=== PATIENT | male | born 1930 | race Caucasian/White ===

== ENCOUNTER 2016-06-10 15:06 | Inpatient (IN) | payer MEDICARE, BC ==
[~2016-06-10] VITALS: Ht 172.7 cm; Wt 53.9 kg
[~2016-06-10 15:06] MED LIST: AMLO2.5T29 PO; AUD NEB; BENA10TA3 PO
[2016-06-10] MEDS ORDERED: MOM30 PO (15:14)
[2016-06-10] MEDS ORDERED: CALC-1009 PO (15:14)
[2016-06-10] MEDS ORDERED: FAMO20 PO (15:14)
[2016-06-10] MEDS ORDERED: BISA5TAB12 PO (15:14)
[2016-06-10] MEDS ORDERED: ATOR40TA28 PO (15:14)
[2016-06-10] MEDS ORDERED: LOSA50TA37 PO (15:14)
[2016-06-10] MEDS ORDERED: ASPI81 PO (15:14)
[2016-06-10] MEDS ORDERED: VITAD1000 PO (15:14)
[2016-06-10] MEDS ORDERED: MULT1CAP32 PO (15:14)
[2016-06-10 15:22] LABS: GLUCOSE,POINT OF CARE 107 MG/DL (70-110)
[2016-06-10 15:33] LABS: BASOPHILS % (AUTO) 0.3 % (0.0-2.0); EOSINOPHILS % (AUTO) 0.6 % (1.0-6.0); HEMATOCRIT 39.4 % (41-53); HEMOGLOBIN 12.2 g/dL (13.5-17.5); LYMPHOCYTES # (AUTO) 1.7 K/uL (1.0-4.8); LYMPHOCYTES % (AUTO) 14.9 % (22.0-44.0); MEAN CORPUSCULAR HEMOGLOBIN 23.6 pg (26.0-34.0); MEAN CORPUSCULAR HGB CONC 31.1 G/dL (31.0-37.0); MEAN CORPUSCULAR VOLUME 76 fL (80-100); MONOCYTES # (AUTO) 0.6 K/uL (0.1-1.0); MONOCYTES % (AUTO) 5.5 % (2.0-9.0); NEUTROPHILS # (AUTO) 9.2 K/uL (1.8-7.7); NEUTROPHILS % (AUTO) 78.7 % (40.0-70.0); PLATELET COUNT (AUTO) 230 K/uL (150-450); RED BLOOD CELL COUNT(AUTO) 5.19 MIL/uL (4.50-5.90); RED CELL DISTRIBUTION WIDTH 16.6 % (11.5-14.5); WHITE BLOOD COUNT (AUTO) 11.7 K/uL (4.5-11.0)
[2016-06-10 15:47] LABS: ANION GAP 8 mmol/L (8-16); CALCIUM, TOTAL 9.1 mg/dL (8.8-10.5); CARBON DIOXIDE 32 mmol/L (22-29); CHLORIDE 102 mmol/L (98-107); CREATININE 1.26 mg/dL (0.60-1.30); GLOMERULAR FILTR. RATE CALC 54 mL/min (>60); SODIUM SERUM 142 mmol/L (136-145); UREA NITROGEN, BLOOD 15 mg/dL (7-18)
[2016-06-10 15:50] LABS: INR 1.1 (0.9-1.1); PROTHROMBIN TIME 11.7 SEC (9.4-11.6)
[2016-06-10 15:58] LABS: RBC MORPHOLOGY COMMENT ABNORMAL RBC MORPH
[2016-06-10] MEDS ORDERED: LORazepam 2 MG/ML VIAL IVP ONE (16:00)
[2016-06-10] MEDS ORDERED: LORazepam 2 MG/ML VIAL ONE (16:01)
[2016-06-10 16:07] LABS: B-TYPE NATRIURETIC PEPTIDE 526 pg/mL (0-100)
[2016-06-10 16:15] LABS: ALANINE AMINOTRANSFERASE 19 U/L (12-78); ALBUMIN 2.9 g/dL (3.4-5.0); ASPARTATE AMINOTRANSFERASE 35 U/L (15-37); BILIRUBIN,TOTAL 0.7 mg/dL (0.1-1.0); CREATINE KINASE MB 3.1 ng/mL (0-5); CREATINE KINASE, TOTAL 181 U/L (39-308); TOTAL PROTEIN, SERUM 7.5 g/dL (6.4-8.2)
[2016-06-10] MEDS ORDERED: CLOPIDOGREL BISULFATE 75 MG TABLET PO ONE (17:15)
[2016-06-10] MEDS ORDERED: ASPIRIN 81 MG CHEWABLE TABLET PO ONE (17:15)
[2016-06-10 17:26] LABS: APPEARANCE,URINE CLEAR (CLEAR); GLUCOSE, URINE (UA) NEGATIVE (NEGATIVE); KETONES,URINE NEGATIVE (NEGATIVE); LEUKOCYTE ESTERASE ,URINE NEGATIVE (NEGATIVE); OCCULT BLOOD,URINE NEGATIVE (NEGATIVE); PROTEIN,URINE NEGATIVE (NEGATIVE)
[2016-06-10] MEDS ORDERED: ACETAMINOPHEN 325 MG TABLET PO PRN (17:30)
[2016-06-10 17:36] LABS: ADD UA MICROSCOPIC NO
[2016-06-10] MEDS ORDERED: IPRATROPIUM BROMIDE 0.5 MG/2.5 ML NEB SOLUTION NEB PRN (21:00)
[2016-06-10] MEDS ORDERED: ZOLPIDEM TARTRATE 5 MG TABLET PO PRN (21:00)
[2016-06-10] MEDS ORDERED: ONDANSETRON HCL 4 MG/2 ML VIAL IVP PRN (21:00)
[2016-06-10] MEDS ORDERED: MAGNESIUM HYDROXIDE SUSPENSION 30 ML UDCUP PO PRN (21:00)
[2016-06-10] MEDS ORDERED: ALBUTEROL SULFATE 2.5 MG/0.5 ML NEB SOLUTION NEB PRN (21:00)
[2016-06-10] MEDS: HEPARIN SODIUM,PORCINE 5,000 UNITS/ML VIAL SQ SCH (21:23)
[2016-06-10 22:43] VITALS: BP 121/91
[2016-06-11 04:21] VITALS: BP 143/67
[2016-06-11 07:13] LABS: BASOPHILS # (AUTO) 0.03 K/uL (0.00-0.20); BASOPHILS % (AUTO) 0.3 % (0.0-2.0); EOSINOPHILS % (AUTO) 2.19 % (1.0-6.0); HEMATOCRIT 39.4 % (41-53); HEMOGLOBIN 12.7 g/dL (13.5-17.5); LYMPHOCYTES # (AUTO) 1.2 K/uL (1.0-4.8); LYMPHOCYTES % (AUTO) 12.5 % (22.0-44.0); MEAN CORPUSCULAR HEMOGLOBIN 23.9 pg (26.0-34.0); MEAN CORPUSCULAR HGB CONC 32.2 G/dL (31.0-37.0); MEAN CORPUSCULAR VOLUME 74 fL (80-100); MONOCYTES # (AUTO) 0.5 K/uL (0.1-1.0); MONOCYTES % (AUTO) 5.3 % (2.0-9.0); NEUTROPHILS # (AUTO) 7.4 K/uL (1.8-7.7); NEUTROPHILS % (AUTO) 79.8 % (40.0-70.0); PLATELET COUNT (AUTO) 216 K/uL (150-450); RED CELL DISTRIBUTION WIDTH 17.2 % (11.5-14.5); WHITE BLOOD COUNT (AUTO) 9.2 K/uL (4.5-11.0)
[2016-06-11 07:19] LABS: RBC MORPHOLOGY COMMENT ABNORMAL RBC MORPH
[2016-06-11 07:53] VITALS: BP 136/83
[2016-06-11 08:25] LABS: ERYTHROCYTE SEDIMENTATION RATE 33 MM/HR (0-15)
[2016-06-11 08:29] LABS: HEMOGLOBIN A1C 6.2 % (4.5-6.2)
[2016-06-11 08:42] LABS: ANION GAP 10 mmol/L (8-16); CALCIUM, TOTAL 9.1 mg/dL (8.8-10.5); CARBON DIOXIDE 28 mmol/L (22-29); CHLORIDE 102 mmol/L (98-107); CHOL/HDL RATIO 2.3 (4.2-7.3); CREATINE KINASE, TOTAL 163 U/L (39-308); GLOMERULAR FILTR. RATE CALC > 60 mL/min (>60); POTASSIUM 3.7 mmol/L (3.5-5.1); SODIUM SERUM 140 mmol/L (136-145); UREA NITROGEN, BLOOD 12 mg/dL (7-18)
[2016-06-11] MEDS ORDERED: MAGNESIUM SULFATE 4 GM/WATER 100 ML IV PRN (09:15)
[2016-06-11] MEDS ORDERED: GADOBUTROL 1 MMOL/ML 10 ML VIAL IVP ONE (09:19)
[2016-06-11] MEDS: PANTOPRAZOLE SODIUM 40 MG DR TABLET PO SCH (09:29)
[2016-06-11] MEDS: ASPIRIN 81 MG CHEWABLE TABLET PO SCH (09:29)
[2016-06-11] MEDS: BENAZEPRIL HCL 10 MG TABLET PO SCH (09:29)
[2016-06-11] MEDS: MULTIVITAMINS, THERAPEUTIC TABLET PO SCH (09:30)
[2016-06-11] MEDS: CHOLECALCIFEROL (VIT D3) 1,000 UNITS TABLET PO SCH (09:30)
[2016-06-11] MEDS: HEPARIN SODIUM,PORCINE 5,000 UNITS/ML VIAL SQ SCH ×2 (10:18→20:16)
[2016-06-11 11:00] VITALS: BP 126/66
[2016-06-11] MEDS: MAGNESIUM SULFATE 2 GM in DEXTROSE 5%-WATER 50 ML IV PRN (12:11)
[2016-06-11 15:03] VITALS: BP 148/95
[2016-06-11] MEDS ORDERED: LORazepam 2 MG/ML VIAL IVP ONE (15:30)
[2016-06-11] MEDS ORDERED: LORazepam 2 MG/ML VIAL IVP PRN (15:30)
[2016-06-11] MEDS ORDERED: AMLO2.5T PO (15:33)
[2016-06-11 19:45] VITALS: BP 142/84
[2016-06-11] MEDS: ATORVASTATIN CALCIUM 40 MG TABLET PO SCH (20:16)
[2016-06-11 23:33] VITALS: BP 131/79
[2016-06-12 04:54] VITALS: BP 129/71
[2016-06-12 08:14] VITALS: BP 135/79
[2016-06-12] MEDS: CHOLECALCIFEROL (VIT D3) 1,000 UNITS TABLET PO SCH (08:33)
[2016-06-12] MEDS: MULTIVITAMINS, THERAPEUTIC TABLET PO SCH (08:33)
[2016-06-12] MEDS: PANTOPRAZOLE SODIUM 40 MG DR TABLET PO SCH (08:34)
[2016-06-12] MEDS: MAGNESIUM OXIDE 400 MG TABLET PO PRN ×3 (08:35→18:32)
[2016-06-12] MEDS: ASPIRIN 81 MG CHEWABLE TABLET PO SCH (08:35)
[2016-06-12] MEDS: BENAZEPRIL HCL 10 MG TABLET PO SCH (08:35)
[2016-06-12] MEDS: HEPARIN SODIUM,PORCINE 5,000 UNITS/ML VIAL SQ SCH ×2 (08:37→20:25)
[2016-06-12 09:29] LABS: BASOPHILS % (AUTO) 0.3 % (0.0-2.0); EOSINOPHILS % (AUTO) 1.3 % (1.0-6.0); HEMATOCRIT 41.1 % (41-53); HEMOGLOBIN 12.7 g/dL (13.5-17.5); LYMPHOCYTES # (AUTO) 1.5 K/uL (1.0-4.8); LYMPHOCYTES % (AUTO) 13.6 % (22.0-44.0); MEAN CORPUSCULAR HEMOGLOBIN 23.5 pg (26.0-34.0); MEAN CORPUSCULAR VOLUME 76 fL (80-100); MONOCYTES # (AUTO) 0.8 K/uL (0.1-1.0); MONOCYTES % (AUTO) 6.8 % (2.0-9.0); NEUTROPHILS # (AUTO) 8.7 K/uL (1.8-7.7); PLATELET COUNT (AUTO) 209 K/uL (150-450); RED BLOOD CELL COUNT(AUTO) 5.41 MIL/uL (4.50-5.90); RED CELL DISTRIBUTION WIDTH 16.2 % (11.5-14.5); WHITE BLOOD COUNT (AUTO) 11.2 K/uL (4.5-11.0)
[2016-06-12 09:54] LABS: CALCIUM, TOTAL 8.9 mg/dL (8.8-10.5); CREATININE 1.31 mg/dL (0.60-1.30)
[2016-06-12 09:58] LABS: RBC MORPHOLOGY COMMENT ABNORMAL RBC MORPH
[2016-06-12 10:26] LABS: HEPATITIS Bs ANTIGEN SCREEN P Negative (Negative); HEPATITIS C AB SCREEN 0.1 s/co ratio (0.0-0.9)
[2016-06-12 11:38] VITALS: BP 140/69
[2016-06-12 16:27] VITALS: BP 155/73
[2016-06-12 19:18] VITALS: BP 139/80
[2016-06-12] MEDS: ATORVASTATIN CALCIUM 40 MG TABLET PO SCH (20:25)
[2016-06-12 23:04] VITALS: BP 111/71
[2016-06-13 05:05] VITALS: BP 105/60
[2016-06-13 06:11] LABS: BASOPHILS % (AUTO) 0.2 % (0.0-2.0); EOSINOPHILS % (AUTO) 1.1 % (1.0-6.0); HEMATOCRIT 39.3 % (41-53); HEMOGLOBIN 12.1 g/dL (13.5-17.5); LYMPHOCYTES # (AUTO) 1.7 K/uL (1.0-4.8); LYMPHOCYTES % (AUTO) 18.5 % (22.0-44.0); MEAN CORPUSCULAR HEMOGLOBIN 23.6 pg (26.0-34.0); MEAN CORPUSCULAR HGB CONC 30.8 G/dL (31.0-37.0); MEAN CORPUSCULAR VOLUME 77 fL (80-100); MONOCYTES # (AUTO) 0.9 K/uL (0.1-1.0); NEUTROPHILS # (AUTO) 6.6 K/uL (1.8-7.7); NEUTROPHILS % (AUTO) 70.2 % (40.0-70.0); PLATELET COUNT (AUTO) 200 K/uL (150-450); RED BLOOD CELL COUNT(AUTO) 5.12 MIL/uL (4.50-5.90); RED CELL DISTRIBUTION WIDTH 16.8 % (11.5-14.5); WHITE BLOOD COUNT (AUTO) 9.4 K/uL (4.5-11.0)
[2016-06-13 06:43] LABS: CALCIUM, TOTAL 8.6 mg/dL (8.8-10.5); CREATININE 1.25 mg/dL (0.60-1.30); MAGNESIUM 1.6 mg/dL (1.80-2.40); POTASSIUM 3.9 mmol/L (3.5-5.1)
[2016-06-13 08:05] VITALS: BP 119/77
[2016-06-13] MEDS: MULTIVITAMINS, THERAPEUTIC TABLET PO SCH (08:11)
[2016-06-13] MEDS: CHOLECALCIFEROL (VIT D3) 1,000 UNITS TABLET PO SCH (08:12)
[2016-06-13] MEDS: BENAZEPRIL HCL 10 MG TABLET PO SCH (08:13)
[2016-06-13] MEDS: ASPIRIN 81 MG CHEWABLE TABLET PO SCH (08:13)
[2016-06-13] MEDS: PANTOPRAZOLE SODIUM 40 MG DR TABLET PO SCH (08:14)
[2016-06-13] MEDS: HEPARIN SODIUM,PORCINE 5,000 UNITS/ML VIAL SQ SCH ×2 (08:19→20:54)
[2016-06-13] MEDS: MAGNESIUM SULFATE 2 GM in DEXTROSE 5%-WATER 50 ML IV PRN (10:00)
[2016-06-13 10:35] LABS: RBC MORPHOLOGY COMMENT ABNORMAL RBC MORPH
[2016-06-13 12:00] VITALS: BP 133/65
[2016-06-13] MEDS: ESCITALOPRAM OXALATE 10 MG TABLET PO SCH (13:26)
[2016-06-13] MEDS: ACETAMINOPHEN 325 MG TABLET PO PRN ×2 (13:26→18:28)
[2016-06-13 16:05] VITALS: BP 109/60
[2016-06-13 19:23] VITALS: BP 110/73
[2016-06-13] MEDS: MAGNESIUM OXIDE 400 MG TABLET PO SCH (20:54)
[2016-06-13] MEDS: ATORVASTATIN CALCIUM 40 MG TABLET PO SCH (20:54)
[2016-06-14 06:32] LABS: ANION GAP 9 mmol/L (8-16); BASOPHILS % (AUTO) 0.2 % (0.0-2.0); CALCIUM, TOTAL 8.7 mg/dL (8.8-10.5); CARBON DIOXIDE 29 mmol/L (22-29); CHLORIDE 103 mmol/L (98-107); CREATINE KINASE, TOTAL 53 U/L (39-308); CREATININE 1.46 mg/dL (0.60-1.30); EOSINOPHILS % (AUTO) 1.8 % (1.0-6.0); GLOMERULAR FILTR. RATE CALC 46 mL/min (>60); HEMATOCRIT 39.3 % (41-53); HEMOGLOBIN 12.3 g/dL (13.5-17.5); LYMPHOCYTES # (AUTO) 1.5 K/uL (1.0-4.8); LYMPHOCYTES % (AUTO) 12.6 % (22.0-44.0); MEAN CORPUSCULAR HEMOGLOBIN 23.8 pg (26.0-34.0); MEAN CORPUSCULAR HGB CONC 31.3 G/dL (31.0-37.0); MEAN CORPUSCULAR VOLUME 76 fL (80-100); MONOCYTES # (AUTO) 0.7 K/uL (0.1-1.0); MONOCYTES % (AUTO) 5.9 % (2.0-9.0); NEUTROPHILS # (AUTO) 9.5 K/uL (1.8-7.7); NEUTROPHILS % (AUTO) 79.5 % (40.0-70.0); PLATELET COUNT (AUTO) 210 K/uL (150-450); POTASSIUM 3.9 mmol/L (3.5-5.1); RED BLOOD CELL COUNT(AUTO) 5.17 MIL/uL (4.50-5.90); RED CELL DISTRIBUTION WIDTH 16.6 % (11.5-14.5); SODIUM SERUM 141 mmol/L (136-145); UREA NITROGEN, BLOOD 30 mg/dL (7-18); WHITE BLOOD COUNT (AUTO) 11.9 K/uL (4.5-11.0)
[2016-06-14 08:17] VITALS: BP 133/76
[2016-06-14 08:47] LABS: RBC MORPHOLOGY COMMENT ABNORMAL RBC MORPH
[2016-06-14] MEDS: PANTOPRAZOLE SODIUM 40 MG DR TABLET PO SCH (09:09)
[2016-06-14] MEDS: HEPARIN SODIUM,PORCINE 5,000 UNITS/ML VIAL SQ SCH (09:09)
[2016-06-14] MEDS: MULTIVITAMINS, THERAPEUTIC TABLET PO SCH (09:09)
[2016-06-14] MEDS: MAGNESIUM OXIDE 400 MG TABLET PO SCH (09:09)
[2016-06-14] MEDS: CHOLECALCIFEROL (VIT D3) 1,000 UNITS TABLET PO SCH (09:09)
[2016-06-14] MEDS: ACETAMINOPHEN 325 MG TABLET PO PRN (09:09)
[2016-06-14] MEDS: ASPIRIN 81 MG CHEWABLE TABLET PO SCH (09:09)
[2016-06-14] MEDS: BENAZEPRIL HCL 10 MG TABLET PO SCH (09:12)
[2016-06-14] MEDS: ESCITALOPRAM OXALATE 10 MG TABLET PO SCH (09:12)
[2016-06-14 11:09] VITALS: BP 107/69
[2016-06-14 15:23] VITALS: BP 110/74
== END 2016-06-14 15:40 | DRG 65 ==
LOC: EMS 15:14 → 5S 18:19
PROVIDERS: ADMIT Internal Medicine Geriatric Medicine; ATTEND Internal Medicine Geriatric Medicine
DX: I63.9 Cerebral infarction, unspecified (principal); G81.91 Hemiplegia, unspecified affecting right dominant side; F01.50 Vascular dementia, unspecified severity, without behavioral disturbance, psychotic disturbance, mood disturbance, and anxiety; I10 Essential (primary) hypertension; I25.10 Atherosclerotic heart disease of native coronary artery without angina pectoris; E78.5 Hyperlipidemia, unspecified; F32.9 Major depressive disorder, single episode, unspecified; I48.2 Chronic atrial fibrillation; D64.9 Anemia, unspecified; D72.829 Elevated white blood cell count, unspecified; Z79.82 Long term (current) use of aspirin; Z95.5 Presence of coronary angioplasty implant and graft; Z95.0 Presence of cardiac pacemaker; Z91.19 Patient's noncompliance with other medical treatment and regimen; Z86.73 Personal history of transient ischemic attack (TIA), and cerebral infarction without residual deficits
CPT/HCPCS: 70496; 70553; 80074; 82306; 82607; 82746; 82962; 83036; 83735; 84439; 85651; 86140; 86592; 87081; 92610; 93005; 93306; 93880; 96374; 97163; 97167; 97530; 99291; A9585; J1644; J2060; J3475; J7060